=== PATIENT | female | born 1995 | race Caucasian/White ===

== ENCOUNTER 2021-07-21 20:42 | Emergency (ER) | payer OTHER, MEDICAID ==
[~2021-07-21] VITALS: Ht 157.5 cm; Wt 123.8 kg
--- NOTE | 2021-07-21 21:26 | PHYS DOC ---
Past History Past Medical History: Seizure Past Surgical History: Other Additional Past Surgical Histo: GI surgery 3 years old General Adult EDM: Chief Complaint: SEIZURE HPI: HPI: ".. I guess I had a little seizure.. I have had seizures a long time... Since age 3, I have not been taking my Depakote... I just come appear to be close to the snf [place] my boyfriend is finishing his violation probation sentence... When he gets out of snf here this next month we are going to go back to [place]... Things are better down in [facility] for us... But he has to get out of the [facility] first..:" Patient is a 26 year old female who presents with above hx and complaints of seizure. Patient feels that her seizure which was tonic-clonic was because of noncompliance with her Depakote. Patient states she has not taken it for almost a month then off and on. Patient has not taken other meds have been prescribed for her. Patient has had tonic-clonic seizures since age 3. Patient also had a unknown GI surgery at age 3. The patient denies any illicit drug use, patient denies any alcohol use , patient denies any trauma. Patient denies any specific ill contacts. Patient denies any immunosuppression. Review of Systems: Review of Systems: Constitutional: Denies fever or chills Eyes: Denies change in visual acuity HENT: Denies nasal congestion or sore throat Respiratory: Denies cough or shortness of breath Cardiovascular: Denies chest pain or edema GI: Denies abdominal pain, nausea, vomiting, bloody stools or diarrhea : Denies dysuria Musculoskeletal: Denies back pain or joint pain Integument: Denies rash Neurologic: Denies headache, focal weakness or sensory changes. Complains of seizure Endocrine: Denies polyuria or polydipsia Lymphatic: Denies swollen glands Psychiatric: Denies depression or anxiety Family History: Family History: Family history noncontributory Current Medications: Current Meds: See nursing for home meds Allergies: Allergies: Allergies Coded Allergies Type Severity Reaction Last Updated Verified Penicillins Allergy Unknown 07/21/21 Yes amoxicillin Allergy Unknown 07/21/21 Yes aspirin Allergy Unknown 07/21/21 Yes Physical Exam: PE: Constitutional: , no acute distress, non-toxic appearance. [] HENT: Normocephalic, atraumatic, bilateral external ears normal, oropharynx moist, no oral exudates, nose normal. Very poor dentition. Slight bite klaus on edges of tongue Eyes: PERRLA, EOMI, conjunctiva normal, no discharge. [] Neck: Normal range of motion, no tenderness, supple, no stridor. [] Cardiovascular:Heart rate regular rhythm, no murmur [] Lungs & Thorax: Bilateral breath sounds apex with few crackles on right base auscultation [] Abdomen: Bowel sounds normal, soft, no tenderness, no masses, no pulsatile masses. Obese-BMI 49.9 Skin: Warm, dry, no erythema, no rash. [] Back: No tenderness, no CVA tenderness. [] Extremities: No tenderness, no cyanosis, no clubbing, ROM intact, no edema. No cording. Neurologic: Alert and oriented X 3, normal motor function, normal sensory function, no focal deficits noted. There is +2 patella and brachial. [id number]. No drift. Ambulatory without problems. Patient appeared postictal on arrival but this resolved by time of discharge. Psychologic: Affect flat, judgement seems to lack insight for her medical condition and importance of med compliance, mood normal. [] Current Patient Data: Vital Signs: Vital Signs Date Time Temp Pulse Resp B/P (MAP) Pulse Ox O2 Delivery O2 Flow Rate FiO2 07/21/21 20:46 83 22 140/90 (107) 99 Room Air EKG: EKG: My interpretation EKG shows a sinus rhythm at 62 bpm. No acute morphology. Time of EKG is 2343 hrs. [] Radiology/Procedures: Radiology/Procedures: [][address] [address] IMAGING REPORT Signed PATIENT: JASMYNE SÁNCHEZ ACCOUNT: [id number] : 1995 LOCATION: ER AGE: 26 SEX: F EXAM STATUS: REG ER ORD. PHYSICIAN: JOSH PASCAL MD REASON: seizure, dyspena PROCEDURE: CHEST PA & LATERAL Chest, PA and Lateral: Technique: PA and lateral views of the chest were obtained. History: Seizure, dyspnea. Comparison: None. Findings: The heart and pulmonary vasculature appear within normal limits. Faint scattered airspace opacities identified in the bilateral lungs likely atelectasis or infiltrates. The pleural margins are clear. Impression: Faint scattered airspace opacities identified in the bilateral lungs likely atelectasis or infiltrates. Follow-up to resolution. Electronically signed by: Mayank Clayton MD (07/22/2021 12:10 AM) [id number] DICTATED AND SIGNED BY: MAYANK CLAYTON MD DATE: 07/22/21 0009 CC: JOSH PASCAL MD; PCP,NO ~ Heart Score: C/O Chest Pain: N/A Risk Factors: Risk Factors: DM, Current or recent (<one month) smoker, HTN, HLP, family history of CAD, obesity. Risk Scores: Score 0 - 3: 2.5% MACE over next 6 weeks - Discharge Home Score 4 - 6: 20.3% MACE over next 6 weeks - Admit for Clinical Observation Score 7 - 10: 72.7% MACE over next 6 weeks - Early Invasive Strategies Course & Med Decision Making: Course & Med Decision Making Pertinent Labs and Imaging studies reviewed. (See chart for details) Encourage patient to take her Depakote as directed. Follow-up with primary care. Establish with primary care physician while here in the [place] area while she is waiting for her boyfriend to get out of [place] [facility]. Impression: 1. History of seizure 2. History of noncompliance with Depakote [] Kvng Disclaimer: Kvng Disclaimer: This electronic medical record was generated, in whole or in part, using a voice recognition dictation system. Departure Departure: Scripts Divalproex Sodium (DEPAKOTE ER) 500 Mg Tab.er.24h 500 MG PO TID for Seizure, #90 TAB.SR Prov: JOSH PASCAL MD 07/22/21 JOSH PASCAL MD July 21, 2021 21:26
[2021-07-21] MEDS ORDERED: LORazepam 1 MG TABLET PO ONE (21:30)
[2021-07-21] MEDS ORDERED: IV RINGERS SOLUTION,LACTATED 1,000 ML IV ONE (21:30)
[2021-07-21] MEDS ORDERED: VALPROIC ACID 250 MG CAPSULE. PO ONE (21:30)
[2021-07-21 21:45] LABS: BASO % 0 % (0-3); EOS # 0.1 x10^3/uL (0.0-0.7); EOS % 1 % (0-3); HEMATOCRIT 34.8 % (36.0-47.0); HEMOGLOBIN 11.8 g/dL (12.0-15.5); LYMPH # 2.4 x10^3/uL (1.0-4.8); LYMPH % 30 % (24-48); MEAN CORPUSCULAR HEMOGLOBIN 30 pg (25-35); MEAN CORPUSCULAR HGB CONC 34 g/dL (31-37); MEAN CORPUSCULAR VOLUME 88 fL (79-100); MONO # 0.5 x10^3/uL (0.0-1.1); MONO % 6 % (0-9); NEUT # 5.2 x10^3uL (1.8-7.7); NEUT % 64 % (31-73); PLATELET COUNT 189 x10^3/uL (140-400); RED BLOOD COUNT 3.97 x10^6/uL (3.50-5.40); RED CELL DISTRIBUTION WIDTH 13.2 % (11.5-14.5); WHITE BLOOD COUNT 8.2 x10^3/uL (4.0-11.0)
[2021-07-21 21:50] LABS: BARBITURATES NEG (NEG); BENZODIAZEPINES NEG (NEG); CANNABINOIDS NEG (NEG); COCAINE NEG (NEG); METHADONE NEG (NEG); OPIATES NEG (NEG); PHENCYCLIDINE NEG (NEG)
[2021-07-21 21:54] LABS: CLARITY,URINE HAZY; COLOR,URINE YELLOW; GLUCOSE,URINE NEG (NEG)
[2021-07-21 21:55] LABS: NITRITE,URINE NEG (NEG); UROBILINOGEN,URINE 0.2 mg/dL (0.2 mg/dL)
[2021-07-21 21:56] LABS: BACTERIA,URINE MOD /HPF (0-FEW); RBC,URINE OCC /HPF (0-2); SQUAMOUS EPITHELIAL CELL,UR MOD /LPF
[2021-07-21 21:57] LABS: AMPHETAMINE/METHAMPHETAMINE NEG (NEG)
[2021-07-21 22:03] LABS: ANION GAP 11 (6-14); BLOOD UREA NITROGEN 11 mg/dL (7-20); CALCIUM 8.8 mg/dL (8.5-10.1); CARBON DIOXIDE 26 mmol/L (21-32); CHLORIDE 105 mmol/L (98-107); CREATININE 0.7 mg/dL (0.6-1.0); GFR 101.1; GLUCOSE 101 mg/dL (70-99); POTASSIUM 3.3 mmol/L (3.5-5.1); SODIUM 142 mmol/L (136-145)
[2021-07-21 22:04] LABS: VAL ACID < 3 mcg/mL (50-100)
[2021-07-21 22:07] LABS: U PREG PATIENT NEGATIVE (NEG)
--- NOTE | 2021-07-22 00:12 | RAD ---
Chest, PA and Lateral: Technique: PA and lateral views of the chest were obtained. History: Seizure, dyspnea. Comparison: None. Findings: The heart and pulmonary vasculature appear within normal limits. Faint scattered airspace opacities identified in the bilateral lungs likely atelectasis or infiltrates. The pleural margins are clear. Impression: Faint scattered airspace opacities identified in the bilateral lungs likely atelectasis or infiltrate s. Follow-up to resolution. Electronically signed by: Mayank Clayton MD (07/22/2021 12:10 AM) [id number]
[2021-07-22] MEDS ORDERED: DIVA500T4 PO (00:42)
[2021-07-22] MEDS ORDERED: POTASSIUM CHLORIDE 20 MEQ TABLET.ER. PO ONE (00:45)
[2021-07-22] MEDS ORDERED: DIVALPROEX ER 500 MG TAB.ER.24H PO ONE (00:57)
[2021-07-22 01:04] VITALS: BP 110/73
[2021-07-22] MEDS ORDERED: VALPROATE ACID 250 MG/5 ML ORAL SOLUTION PEG SCH (09:00)
== END 2021-07-22 01:12 | disposition home or self-care (01) ==
LOC: ER 20:42
DX: D64.9 Anemia, unspecified (principal); E87.6 Hypokalemia; Z88.0 Allergy status to penicillin; Z88.1 Allergy status to other antibiotic agents; Z88.6 Allergy status to analgesic agent
CPT/HCPCS: 36415; 71046; 80048; 80164; 80307; 81001; 81025; 82550; 83735; 83880; 84484; 85025; 85610; 85730; 87086; 93005; 96360; 96361; 99285; G0480; J7120

== ENCOUNTER 2021-08-02 20:00 | Emergency (ER) | payer OTHER, MEDICAID, MEDICARE ==
[~2021-08-02] VITALS: Ht 162.6 cm; Wt 129.5 kg
[~2021-08-02 20:00] MED LIST: DIVA500T4 PO
--- NOTE | 2021-08-02 20:09 | PHYS DOC ---
Past History Past Medical History: Seizure Past Surgical History: Other Additional Past Surgical Histo: GI surgery 3 years old Adult General Chief Complaint Chief Complaint: HYPOGLYCEMIA HPI HPI Patient is a 26-year-old female with a past medical history of noninsulin- dependent diabetes, who presents with lightheadedness and lightheadedness and hypoglycemia. Patient is a homeless female who has not had anything to eat since yesterday. Denies any other recent traumas, travels, fevers, rash, chest pain, shortness of breath, abdominal pain, nausea, vomiting, diarrhea. Denies any dysuria, hematuria, blood in the stool. States currently she had not taken any medications. States she came to town to [place] who is in [place] but had some issues and does not have a place to stay right now. Was asking for something to eat and help [facility]. Review of Systems Review of Systems Review of systems otherwise unremarkable except noted in HPI Allergies Allergies Allergies Coded Allergies Type Severity Reaction Last Updated Verified Penicillins Allergy Unknown 07/21/21 Yes amoxicillin Allergy Unknown 07/21/21 Yes aspirin Allergy Unknown 07/21/21 Yes Physical Exam Physical Exam Constitutional: Obese, well nourished, no acute distress, non-toxic appearance. [] HENT: Normocephalic, atraumatic, bilateral external ears normal, oropharynx moist, no oral exudates, poor dentition nose normal. [] Eyes: PERRLA, EOMI, conjunctiva normal, no discharge. [] Neck: Normal range of motion, no tenderness, supple, no stridor. [] Cardiovascular:Heart rate regular rhythm, no murmur [] Lungs & Thorax: Bilateral breath sounds clear to auscultation [] Abdomen: Bowel sounds normal, soft, no tenderness, no masses, no pulsatile masses. [] Skin: Warm, dry, no erythema, no rash. [] Back: No tenderness, no CVA tenderness. [] Extremities: No tenderness, no cyanosis, no clubbing, ROM intact, no edema. [] Neurologic: Alert and oriented X 3, normal motor function, normal sensory function, no focal deficits noted. [] Psychologic: Affect normal, judgement normal, mood normal. [] EKG EKG [] Radiology/Procedures Radiology/Procedures [] Heart Score C/O Chest Pain: No Risk Factors: Risk Factors: DM, Current or recent (<one month) smoker, HTN, HLP, family history of CAD, obesity. Risk Scores: Risk Factors: DM, Current or recent (<one month) smoker, HTN, HLP, family history of CAD, obesity. Course & Med Decision Making Course & Med Decision Making Patient is a homeless female who presents with lightheadedness and hypoglycemia, likely secondary to not having anything to eat or drink in the last 2 days Vital signs notable for mild hypertension. Blood sugar in route via EMS was 60 and patient appeared tired, after oral glucose patient woke up almost immediately with a GCS of 15 and repeat in the ambulance of 90 blood sugar Urinalysis nonconcerning. negative. Laboratory analysis not concerning. Blood sugar improved with p.o. intake which she tolerated well. Given repeat box lunch. [facility] a bed [facility] the [facility]. Gave cab ride to the mission. Given community resource packet. Gave return precautions to the ED. Patient grateful, verbalized understanding and agreed with plan of discharge to the mission. [] Dragon Disclaimer Dragon Disclaimer This electronic medical record was generated, in whole or in part, using a voice recognition dictation system. Departure Departure: Impression: Primary Impression: Hypoglycemia Additional Impression: Homelessness Disposition: HOME / SELF CARE / HOMELESS Condition: STABLE Referrals: PCP,NO (PCP) Patient Instructions: Hypoglycemia (Low Blood Sugar) Problem Qualifiers ERICK ESTRELLA MD August 02, 2021 20:09
[2021-08-02 20:10] VITALS: BP 141/90
[2021-08-02 21:14] LABS: CLARITY,URINE CLEAR; COLOR,URINE YELLOW; GLUCOSE,URINE NEG (NEG); NITRITE,URINE NEG (NEG); UROBILINOGEN,URINE 0.2 mg/dL (0.2 mg/dL)
[2021-08-02 21:15] LABS: BACTERIA,URINE 0 /HPF (0-FEW); RBC,URINE OCC /HPF (0-2); SQUAMOUS EPITHELIAL CELL,UR MANY /LPF; WBC,URINE 0 /HPF (0-4)
[2021-08-02 21:46] LABS: CALCIUM 9.4 mg/dL (8.5-10.1); CREATININE 0.7 mg/dL (0.6-1.0); GFR 101.1; POTASSIUM 4.4 mmol/L (3.5-5.1)
[2021-08-02 21:47] LABS: BASO % 0 % (0-3); EOS # 0.1 x10^3/uL (0.0-0.7); EOS % 1 % (0-3); HEMATOCRIT 37.2 % (36.0-47.0); HEMOGLOBIN 12.5 g/dL (12.0-15.5); LYMPH # 2.4 x10^3/uL (1.0-4.8); LYMPH % 22 % (24-48); MEAN CORPUSCULAR HEMOGLOBIN 30 pg (25-35); MEAN CORPUSCULAR HGB CONC 34 g/dL (31-37); MEAN CORPUSCULAR VOLUME 88 fL (79-100); MONO # 0.7 x10^3/uL (0.0-1.1); MONO % 7 % (0-9); NEUT # 7.7 x10^3uL (1.8-7.7); NEUT % 70 % (31-73); PLATELET COUNT 198 x10^3/uL (140-400); RED BLOOD COUNT 4.23 x10^6/uL (3.50-5.40); RED CELL DISTRIBUTION WIDTH 13.7 % (11.5-14.5)
== END 2021-08-02 22:35 | disposition home or self-care (01) ==
LOC: ER 20:00
DX: E11.649 Type 2 diabetes mellitus with hypoglycemia without coma (principal); R42 Dizziness and giddiness; Z59.00 Homelessness unspecified; Z88.0 Allergy status to penicillin; Z88.1 Allergy status to other antibiotic agents; Z88.6 Allergy status to analgesic agent
CPT/HCPCS: 36415; 80048; 81001; 81025; 85025; 99283